=== PATIENT | male | born 1960 | race Caucasian/White ===

== ENCOUNTER 2017-03-22 07:02 | Inpatient (IN) | payer BC ==
--- NOTE | 2017-03-09 21:39 | HP ---
HISTORY AND PHYSICAL: DATE OF OFFICE VISIT: 03/09/17 DATE OF SURGERY: 03/22/17 SURGEON: Cheyanne Mg MD * (DICTATED BY CLEOPATRA DOE) PROCEDURE: Right total knee arthroplasty. CHIEF COMPLAINT: Right knee pain. HISTORY OF PRESENT ILLNESS: Mr. Leblanc is a 56-year-old gentleman with complaints of right knee pain secondary to osteoarthritis. He has failed conservative management, has elected to proceed with a right total knee arthroplasty, which is scheduled for 03/22/[address] Mg. PAST MEDICAL HISTORY: Denies. PAST SURGICAL HISTORY: Right ankle surgery, bilateral knee arthroscopies, appendectomy, tonsillectomy, and right small finger amputation. CURRENT MEDICATIONS: 1. [place]. 2. . ALLERGIES: None. FAMILY HISTORY: Cancer. SOCIAL HISTORY: He is a 56-year-old gentleman, lives with his . He does not smoke, use drugs. Uses occasional alcohol. REVIEW OF SYSTEMS: A complete 14-point review of systems was reviewed with the patient. It was all negative or noncontributory. PHYSICAL EXAMINATION GENERAL: He is well developed, well nourished, in no acute distress. VITAL SIGNS: He stands 5 feet 7 inches tall, weighs 190 pounds. His blood pressure is 122/84, his heart rate is 98. HEENT: Normocephalic, atraumatic. NECK: Supple. No palpable lymph nodes. PULMONARY: Lungs are clear to auscultation bilaterally. CARDIO: Regular rate and rhythm. ABDOMEN: Soft, nontender, and nondistended. MUSCULOSKELETAL: Right lower extremity - the skin is intact. There are no open wounds or abrasions. He has tenderness over the medial and lateral joint line. Right knee, 5 to 125 degrees range of motion. 2+ dorsalis pedis pulses and intact sensation. His lower extremity muscle group strengths are intact at 5/5. NEUROLOGIC: He is alert and oriented x3. Cranial nerves II through XII are intact. ASSESSMENT AND PLAN: Mr. Leblanc is a 56-year-old gentleman with complaints of right knee pain secondary to advanced osteoarthritis. He has failed conservative management and has elected to proceed with a right total knee arthroplasty, which is scheduled for 03/22/[address] Mg discussed the risks and benefits of the surgery at today's visit and all of his questions were answered. Coumadin, Percocet, and Colace were sent to his pharmacy for postoperative pain control and DVT prophylaxis. He will see Dr. Mg back 2 weeks after the surgery. CLEOPATRA DOE [id number]/[facility] #: [id number] MTDCharley
[~2017-03-22 07:02] MED LIST: Buffered Lidocaine 0.9% SYRIN* 5 ML/SYR SYRINGE INTRADERM ONE; Dexamethasone IV* 4 MG/ML 1 ML (4 MG) IV SLOW PU ONE; Famotidine IV* 10 MG/ML 2 ML (20 mg) IV ONE
[2017-03-22] MEDS ORDERED: Famotidine IV* 10 MG/ML 2 ML (20 mg) ONE (07:17)
[2017-03-22] MEDS ORDERED: ceFAZolin 2 GM PREMIX (*) 50 ML IVPB ONE (07:18)
[2017-03-22] MEDS ORDERED: Dexamethasone IV* 4 MG/ML 1 ML (4 MG) ONE (07:18)
[2017-03-22] MEDS ORDERED: Buffered Lidocaine 0.9% SYRIN* 5 ML/SYR SYRINGE ONE (07:18)
[2017-03-22] MEDS ORDERED: Midazolam* 1 MG/ML 10 ML VIAL (10 MG) ONE (08:17)
[2017-03-22] MEDS ORDERED: fentaNYL* 50 MCG/ML 2 ML VIAL (100 MCG VIAL) ONE (08:17)
[2017-03-22] MEDS ORDERED: Morphine PF AMP (0.5MG/ML)* 5 MG/10 ML AMP ONE (08:18)
[2017-03-22] MEDS ORDERED: KETAMINE HCL* 50 MG/ML 10 ML VIAL ONE (08:18)
[2017-03-22] MEDS ORDERED: Ketorolac INJ* 30 MG/ML 1 ML VIAL ONE (08:18)
[2017-03-22] MEDS ORDERED: Propofol* 10 MG/ML 20 ML BTL IV PUSH ONE ×3 (08:19→11:42)
[2017-03-22] MEDS ORDERED: Bupivacaine 0.5% SDV PF* 30 ML VIAL ONE (08:19)
[2017-03-22] MEDS ORDERED: Phenylephrine INJ* 10 MG/ML 1 ML VIAL (10 MG) ONE (08:19)
[2017-03-22] MEDS ORDERED: Ondansetron INJ* 2 MG/ML VIAL ONE (08:19)
[2017-03-22] MEDS ORDERED: fentaNYL* 50 MCG/ML 2 ML VIAL (100 MCG VIAL) IV PRN (10:32)
[2017-03-22] MEDS ORDERED: Ondansetron INJ* 2 MG/ML VIAL IV PRN (10:32)
[2017-03-22] MEDS ORDERED: Naloxone* 0.4 MG/ML 1 ML VIAL IV PRN (10:32)
[2017-03-22] MEDS ORDERED: Nalbuphine* 20 MG/ML 1 ML VIAL IV PRN ×2 (10:32)
[2017-03-22] MEDS ORDERED: oxyCODONE/Acetamin 5/325 MG* TAB PO PRN ×2 (10:32)
[2017-03-22] MEDS ORDERED: DiMENhydriNATE IV* 50 MG/ML VIAL IV PUSH PRN (10:32)
[2017-03-22] MEDS ORDERED: Lidocaine 2% PF * 5 ML VIAL ONE (10:43)
[2017-03-22] MEDS ORDERED: Scopolamine 1.5 mg* PATCH TRANSDERM SCH (11:00)
[2017-03-22] MEDS ORDERED: Ropivacaine* 300 MG in NS 0.9% 250 ML* 240 ML EPIDURAL SCH (11:00)
[2017-03-22] MEDS ORDERED: Polyethylene Glycol 3350* 17 GM PACKET PO PRN (12:46)
[2017-03-22] MEDS ORDERED: Acetaminophen TAB* 325 MG PO PRN (12:46)
[2017-03-22] MEDS ORDERED: Bisacodyl SUPP* 10 MG SUPP PR PRN (12:46)
[2017-03-22] MEDS ORDERED: Magnesium Hydroxide LIQ* 30 ML UDC PO PRN (12:46)
--- NOTE | 2017-03-22 14:09 | RAD ---
INDICATION: Status post total right knee replacement surgery. TECHNIQUE: 2 views of the right knee were obtained. FINDINGS: The patient is status post total right knee replacement surgery. The bones and prostheses are in normal alignment. There is a surgical drain which is located anterior. IMPRESSION: STATUS POST TOTAL RIGHT KNEE REPLACEMENT SURGERY.
[2017-03-22] MEDS ORDERED: Warfarin TAB(*) 6 MG PO ONE (17:00)
[2017-03-22] MEDS: BIOFLAVONOID PRODUCTS PO SCH ×2 (18:04→22:07)
[2017-03-22] MEDS: ceFAZolin 1 GM VIAL(*) 1 GM in NS 0.9% 50 ML* 50 ML IVPB SCH (18:32)
[2017-03-22] MEDS: Docusate CAP* 100 MG PO SCH (21:53)
[2017-03-23] MEDS: ceFAZolin 1 GM VIAL(*) 1 GM in NS 0.9% 50 ML* 50 ML IVPB SCH ×2 (02:13→09:56)
[2017-03-23] MEDS ORDERED: diPHENhydraMINE IV* 50 MG/ML 1 ml VIAL (BENADRYL) IV PRN (06:00)
[2017-03-23] MEDS ORDERED: Morphine INJ* 2 MG/ML 1 ML SYRINGE (TWO MG - NEW SYRINGE VERSION) IV PRN (06:00)
[2017-03-23] MEDS ORDERED: oxyCODONE/Acetamin 5/325 MG* TAB PO PRN (06:00)
[2017-03-23] MEDS ORDERED: oxyCODONE TAB* 5 MG TAB PO PRN (06:00)
[2017-03-23] MEDS ORDERED: Ondansetron TAB* 4 MG PO PRN (06:00)
[2017-03-23 06:44] LABS: Hematocrit 29 % (42-52); Hemoglobin 9.6 g/dl (14.0-18.0)
[2017-03-23 06:55] LABS: BUN/Creatinine Ratio 11.3 (8-20); Calcium 8.6 mg/dL (8.6-10.3); EGFR African American 148.1 (>60); EGFR Non-African American 115.2 (>60); Potassium 3.8 mmol/L (3.5-5.0)
[2017-03-23] MEDS: BIOFLAVONOID PRODUCTS PO SCH ×3 (07:17→20:25)
[2017-03-23] MEDS: oxyCODONE/Acetamin 5/325 MG* TAB PO PRN ×5 (08:25→23:43)
[2017-03-23] MEDS: Docusate CAP* 100 MG PO SCH ×2 (08:25→20:12)
--- NOTE | 2017-03-23 11:33 | PN ---
Progress Note - Progress Note Date of Service: 03/23/17 SOAP: Subjective: []Patient seen OOB in chair, doing well, minimal complaints of knee pain. Denies SOB, CP or dizziness. Objective: [] Vital Signs Temp 98.6 F 03/23/17 07:34 Pulse 79 03/23/17 07:34 Resp 18 03/23/17 10:25 BP 119/66 03/23/17 07:34 Pulse Ox 98 03/23/17 11:29 Intake & Output 03/22/17 03/23/17 03/23/17 18:59 06:59 18:59 Intake Total 2630 1800 225 Output Total 1200 3300 300 Balance 1430 -1500 -75 Weight 193 lb Intake: IV Fluids 1950 LR 1900 NS 50ML, Cefazolin 2G 50 Oral 680 1800 225 Output: Urine 300 Zambrano 1200 3300 Other: # Bowel Movements 0 Laboratory Results - last 24 hr 03/23/17 03/23/17 03/23/17 06:26 06:26 06:26 Hgb 9.6 L Hct 29 L INR (Anticoag Therapy) 1.12 H Sodium 134 Potassium 3.8 Chloride 101 Carbon Dioxide 28 Anion Gap 5 BUN 8 Creatinine 0.71 Est GFR ( Amer) 148.1 Est GFR (Non-Af Amer) 115.2 BUN/Creatinine Ratio 11.3 Glucose 100 Calcium 8.6 Right knee hemovac drain discontinued without complication by Dr. Mg this morning, dressings dry and intact calf NT and soft sensation and circulation intact distally +PF/DF right ankle Assessment: []s/p Right total knee arthroplasty POD #! Plan: []PT/OT WBAT RLE Coumadin with Lovenox bridge- 8 mg today Home 1-2 days
[2017-03-23] MEDS ORDERED: Enoxaparin(*) 30 MG/0.3 ML SYR SUBCUT SCH (12:00)
--- NOTE | 2017-03-23 12:25 | OP ---
OPERATIVE REPORT: DATE OF OPERATION: 03/22/17 - Inpatient, [facility] room 350-02 DATE OF : 62 SURGEON: Cheyanne Mg MD MEMORY CARE DIRECTOR: CLEOPATRA Schaffer Ms. did help throughout the procedure with preparation of the leg, wound retraction, manipulation of the hip, and wound closure. ANESTHESIOLOGIST: Dr. Swan. ANESTHESIA: Spinal. PRE-OP DIAGNOSIS: Severe end-stage degenerative osteoarthritis of the right knee joint with severe varus deformity. POST-OP DIAGNOSIS: Severe end-stage degenerative osteoarthritis of the right knee joint with severe varus deformity. OPERATIVE PROCEDURE: Right total knee arthroplasty. TOURNIQUET TIME: 57 minutes. ESTIMATED BLOOD LOSS: 400 cc. COMPLICATIONS: None. SPECIMEN: Bone and cartilage from the right knee joint sent to pathology. BRIEF HISTORY/INDICATIONS: Mr. Leblanc is a 56-year-old gentleman with years of severe right knee pain. Radiographs confirmed toqa-oo-lyow arthritis. He failed conservative treatment with anti-inflammatories, pain medication, intra- articular injections, and physical therapy. Radiographs confirmed [id number] arthritis and he elected to proceed with right right total knee arthroplasty due to continued pain and decreased quality of life. Informed consent was obtained from the patient. He understood the risks of procedure included, but were not limited to bleeding, infection, damage to nearby structures, continued pain, need for further surgery, intraoperative fracture, nerve palsy, hardware failure or loosening, knee stiffness, loss of motion, stroke, heart attack, blood clot, and . He wished to proceed. HARDWARE USED: This is [employer]hew cemented total knee arthroplasty hardware. Two packages of Simplex bone cement. For the femur, a right size 7 posterior stabilized Legion Oxinium femoral component. For the tibia, a size 6 right tibial baseplate. For the insert, an 11 mm posterior stabilized articular insert size 5/6, and for the patella, a 35 mm 3-peg all poly patella. INTRAOPERATIVE FINDINGS: Intraoperatively, the patient was noted to have severe end-stage arthritis of the knee in a tricompartmental fashion. Medial tibial plateau had a significant bone loss due to chronic wear. The patient had 15 degrees varus deformity with 10 degrees flexion contracture. DESCRIPTION OF PROCEDURE: Mr. Leblanc was identified in the preanesthesia unit. His right lower extremity was marked as the correct operative side. Informed consent was signed and placed in the chart. The patient was taken to the operating room and placed under spinal anesthesia. A Zambrano catheter was placed. Tourniquet was placed on the right knee. Right lower extremity was prepped and draped in the usual sterile fashion. Preop time-out was made to correctly identify the patient's side and site. Appropriate perioperative antibiotics were given within 1 hour of incision. Tourniquet was inflated and total tourniquet time for this procedure was 57 minutes. A 14 cm midline incision was made with a 10 blade and carried down to the extensor mechanism. A new 10 blade was used to make a standard medial parapatellar arthrotomy. The patella was subluxed laterally. Electrocautery was used to subperiosteally elevate soft tissue off the superomedial tibia to the mid sagittal plane. Any osteophytes were carefully removed from along the medial tibial plateau. The knee was flexed up. The anterior horn of the lateral meniscus and ACL were sharply released. A drill was used to enter the distal femur. Intramedullary distal femoral cutting guide was pinned on the distal femur. Oscillating saw was used to make the appropriate distal femoral cut. External rotation guide was pinned on the distal femur. Distal femur was sized to a size 7. Size 7 multi-cutting jig was pinned on the distal femur. Oscillating saw was used to make the appropriate 4 chamfer cuts. Next, the PCL was completely released. Tibia was subluxed anteriorly. Extramedullary tibial cutting guide was pinned on the proximal tibia. Oscillating saw was used to make a proximal tibial cut perpendicular to the mechanical axis of the tibia. The proximal tibial bone fragment was carefully removed. Tibia was brought out into full extension. There was good medial and lateral ligamentous balancing. Spacer block had good fit with full extension. Flexion and extension gaps were well balanced. Lamina pipeline construction inspector was placed both medially and laterally. Any remaining meniscus was carefully removed from the medial and lateral compartments. Posterior osteophytes were removed using a curved osteotome. Tibial tray and drop brittney were placed on the proximal tibia and once again confirmed a satisfactory proximal tibial cut. A size 7 right femoral trial was impacted on to the distal femur. This had excellent fit. The box for the posterior stabilized implant was prepared using a reamer and box cut osteotome. A size 6 trial tibia and an 11-mm insert trial were placed. The knee was taken through range of motion. The knee had full extension and 130 degrees of flexion. Patella was everted. 9 mm of patellar bone and cartilage was carefully removed from the patella using oscillating saw. The patella was sized to a size 35. Three peg holes were drilled through the size 35 guide. The 35 trial patella was placed. The knee was taken through range of motion. There was satisfactory patellofemoral tracking. All trials were carefully removed at this point. The tibia was subluxed anteriorly and sized to a size 6. Proximal tibia was prepared using a size 6 keel punch. All bony cut surfaces were copiously irrigated with sterile saline and dried. Final implants were cemented into place starting with the tibia followed by the femur and last the patella. An 11-mm insert trial was placed while the knee was brought out into full extension. Tourniquet was turned down. Electrocautery was used to obtain meticulous hemostasis. Once the cement had fully cured, the knee was copiously irrigated with sterile saline. The insert trial was removed. Any excess cement from around the hardware and capsule was carefully removed. Final insert chosen was an 11-mm posterior stabilized articular insert, size 5/6. This was locked into position on the tibial tray without difficulty. Stability of the insert was checked and rechecked and noted to be stable. The knee was once again copiously irrigated with sterile saline. The extensor mechanism was closed over a medium Hemovac drain using interrupted #1 Vicryl. The rest of the incision was closed in a layered fashion using 0 and 2-0 Vicryl. Skin was closed using running 3-0 nylon suture. Sterile Xeroform, 4x4' s, and Webril were used to cover the incision. Wilfred wrap and cold pack were placed over this. The patient's anesthesia was reversed without difficulty. He was taken to the PACU in stable condition. Intended weightbearing will be weightbearing as tolerated. Intended DVT prophylaxis will be Coumadin with a Lovenox bridge. [id number]/[facility] #: [id number] KEVAN
[2017-03-23] MEDS ORDERED: Warfarin TAB(*) 4 MG PO ONE (17:00)
[2017-03-24] MEDS: oxyCODONE/Acetamin 5/325 MG* TAB PO PRN ×3 (03:40→11:52)
[2017-03-24 08:42] LABS: Hematocrit 30 % (42-52); Hemoglobin 9.9 g/dl (14.0-18.0)
[2017-03-24] MEDS: BIOFLAVONOID PRODUCTS PO SCH (09:00)
[2017-03-24] MEDS: Docusate CAP* 100 MG PO SCH (09:02)
--- NOTE | 2017-03-24 09:16 | PN ---
Progress Note - Progress Note Date of Service: 03/24/17 SOAP: Subjective: Pt. is alert, nad, pain controlled. Objective: RLE : dressing changed, inc c/d/i. distally nvi. Vital Signs: Temp Pulse Resp BP Pulse Ox 98.1 F 79 18 115/66 98 03/24/17 07:24 03/24/17 07:24 03/24/17 08:59 03/24/17 07:24 03/24/17 08:30 Laboratory Results - last 24 hr 03/24/17 03/24/17 08:21 08:21 Hgb 9.9 L Hct 30 L INR (Anticoag Therapy) 3.30 H Assessment: 56yo M pod 2 s/p RTKA Plan: wbat rle pt/ot d/c lovenox hold coumadin d/c to home today
[2017-03-24 12:03] VITALS: BP 121/70
--- NOTE | 2017-03-24 13:08 | DS ---
AMENDED REPORT NOW INCLUDES COSIGNER DESIGNATION - ESIGNED BEFORE ADJUSTMENT DISCHARGE SUMMARY: DATE OF ADMISSION: 03/22/17 DATE OF DISCHARGE: 03/24/17 PROVIDER: Cheyanne Mg MD * (DICTATED BY CLEOPATRA ARIZA) ADMITTING DIAGNOSIS: Severe end-stage osteoarthritis of the right knee. DISCHARGE DIAGNOSIS: Severe end-stage osteoarthritis of the right knee status post right total knee arthroplasty. HISTORY OF PRESENT ILLNESS: Mr. Leblanc is a 56-year-old gentleman who has had ongoing complaints of right knee pain secondary to osteoarthritis. He failed conservative management and elected to proceed with a right total knee arthroplasty. HOSPITAL COURSE: On 03/22/17, the patient was admitted to [facility] and underwent a successful right total knee arthroplasty by Dr. Mg. He recovered briefly in the postanesthesia care unit and was transferred to the short stay surgical unit in stable condition. On postop day 0, his pain was controlled with IV and oral pain medication. He was given 6 mg of Coumadin. On postop day 1, the patient was able to participate in physical therapy and ambulate a short distance with the use of a rolling walker. His pain was controlled with oral pain medication only. His INR was 1.12. He had acute blood loss anemia with an H and H of 9.6 and 29. On postop day 2, the patient' s INR was 3.30 with 8 mg of Coumadin previously. H and H remained stable at 9.9 and 30. He again had good pain control with oral pain medication only. He was able to participate with physical therapy and ambulate unassisted with the use of a rolling walker. He was found stable for discharge at this time. Throughout the hospital course, his vital signs remained stable and he was afebrile. DISCHARGE INSTRUCTIONS: The patient will keep his dressing clean, dry, and intact until postop day 4. At that time, he may remove the dressing and shower normally with soap and water. He is understanding not to submerge the wound in a bath tub, hot tub or swimming pool. He will have home visiting nurse service for wound care and physical therapy. He will follow up in the office 10 to [address] Mg. He is understanding to call the office with any questions or concerns. He will go directly to the emergency room without any chest pain, shortness of breath, fever greater than 101.5, calf pain , or swelling. DISCHARGE MEDICATIONS: The patient will have: 1. Percocet 5/325 one to two tabs q.4 to 6 hours p.r.n. pain. 2. Aspirin 325 mg p.o. b.i.d. to start on 03/26/17. He is to hold any anticoagulation until that time. 3. Colace 100 mg p.o. b.i.d. 4. MiraLAX 17 g p.o. daily as needed. He will resume his home medications of bioflavonoid products and low testosterone supplement. The patient's discharge condition is stable. All of his questions were answered to his full satisfaction. He is understanding to call with any problems or concerns. CLEOPATRA ARIZA [id number]/[facility] #: [id number] KEVAN
[2017-03-25] MEDS ORDERED: Scopolomine PATCH Remove* 1 NOTE MISC PATCH OFF ONE (10:35)
== END 2017-03-24 12:10 | disposition home health service (06) | DRG 302 ==
LOC: AA 07:02 → SSU 14:11
PROVIDERS: ADMIT Orthopaedic Surgery Adult Reconstructive Orthopaedic Surgery; ATTEND Orthopaedic Surgery Adult Reconstructive Orthopaedic Surgery
PROC: 0SRC0J9 Replacement of Right Knee Joint with Synthetic Substitute, Cemented, Open Approach (ICD-10-PCS; principal; 2017-03-22 09:00)
DX: M17.11 Unilateral primary osteoarthritis, right knee (principal); I10 Essential (primary) hypertension; E66.3 Overweight; I49.3 Ventricular premature depolarization; M21.161 Varus deformity, not elsewhere classified, right knee; M25.761 Osteophyte, right knee; Z72.89 Other problems related to lifestyle; Z80.9 Family history of malignant neoplasm, unspecified; Z89.021 Acquired absence of right finger(s); Z68.28 Body mass index [BMI] 28.0-28.9, adult; Z79.82 Long term (current) use of aspirin
CPT/HCPCS: 36415; 80048; 85014; 85018; 85610; 88305; 88311; 94760; A9270-GY; C1776; J0690; J1100; J1650; J1885; J2250; J2270; J2405; J2704; J2795; J3010

== ENCOUNTER 2018-02-05 06:05 | Observation (INO) | payer BC ==
--- NOTE | 2018-01-24 07:45 | HP ---
HISTORY AND PHYSICAL: DATE OF SURGERY: 02/05/18 DATE OF OFFICE VISIT: 01/18/18. SURGEON: Cheyanne Mg MD.* (DICTATED BY CLEOPATRA DOE) PROCEDURE: Left total knee arthroplasty. CHIEF COMPLAINT: Left knee pain. HISTORY OF PRESENT ILLNESS: Mr. Leblanc is a 57-year-old gentleman with continued complaints of left knee pain. He has failed conservative treatment and elected to proceed with a left total knee arthroplasty, which is scheduled for 02/14/18 , with Dr. Mg. PAST MEDICAL HISTORY: Occasional PVCs. PAST SURGICAL HISTORY: 1. Appendectomy. 2. Right total knee arthroplasty. 3. Right heel surgery. 4. Right finger partial amputation. 5. Unknown right foot surgery. 6. Left knee arthroscopy. CURRENT MEDICATIONS: 1. Aleve. 2. Multivitamin. ALLERGIES: No known drug allergies. FAMILY HISTORY: Parkinson's disease and breast cancer. SOCIAL HISTORY: This is a 57-year-old gentleman, lives with his . He does not smoke or uses drugs. Uses occasional alcohol. REVIEW OF SYSTEMS: A complete 14-point review of systems was reviewed with the patient and was all negative and noncontributory. He denies any history of DVT , PE, hepatitis, HIV or anesthesia problems. PHYSICAL EXAMINATION GENERAL: He is well-developed, well-nourished, in no acute distress. VITAL SIGNS: He stands 69 inches tall, weighs 197 pounds. His blood pressure is 112/78, his heart rate is 62. HEENT: Normocephalic, atraumatic. NECK: Supple. No palpable lymph nodes. PULMONARY: The lungs are clear to auscultation bilaterally. CARDIAC: Regular rate and rhythm. Strong S1, S2. ABDOMEN: Soft, nontender, nondistended. MUSCULOSKELETAL: Left lower extremity, the skin is intact. There are no open wounds, or abrasions. He has some tenderness over the medial and lateral joint line. 2+ dorsalis pedis pulses. Intact sensation in his lower extremity. Muscle group strength is intact at 5/5. Range of motion of the left knee is 10 to 120 degrees of flexion with patellofemoral crepitus. NEUROLOGICALLY: He is alert and oriented x3. ASSESSMENT AND PLAN: Mr. Leblanc is a 57-year-old gentleman with end-stage osteoarthritis of the left knee. He has failed conservative treatment and elected to proceed with a left total knee arthroplasty, which is scheduled for 02/05/18, with Dr. Mg. Dr. Mg discussed the risks and benefits of the surgery at today's visit and all of his questions were answered. He will follow up with Dr. Mg in 2 weeks after the surgery. CLEOPATRA DOE [id number]/[facility] #: [id number] E.J. NOBLE HOSPITALCharley
[~2018-02-05 06:05] MED LIST changes: -Dexamethasone IV* 4 MG/ML 1 ML (4 MG) IV SLOW PU ONE; -Famotidine IV* 10 MG/ML 2 ML (20 mg) IV ONE
[2018-02-05] MEDS ORDERED: ceFAZolin 2 GM PREMIX (*) 2 GM/50 ML BAG IVPB ONE (06:48)
[2018-02-05] MEDS ORDERED: Midazolam* 1 MG/ML 2 ML VIAL (2 MG) ONE (06:53)
[2018-02-05] MEDS ORDERED: fentaNYL* 50 MCG/ML 2 ML VIAL (100 MCG VIAL) ONE (06:53)
[2018-02-05] MEDS ORDERED: Ropivacaine (OR use only) 2 MG/ML 10 ML ONE (06:56)
[2018-02-05] MEDS ORDERED: Lidocaine 1%* 5 ML VIAL ONE (07:18)
[2018-02-05] MEDS ORDERED: ROPIVACAINE 5 MG/ML 30 ML BTL (0.5%) ONE (07:18)
[2018-02-05] MEDS ORDERED: Bupivacaine-MPF SPINAL* 7.5 MG/ML - 2ML AMP ONE (07:38)
[2018-02-05] MEDS ORDERED: Tranexamic Acid 1,000 MG/10 ML 1,000 MG in NS 0.9% 100 ML* 100 ML IV ONE (08:00)
[2018-02-05] MEDS ORDERED: Acetaminophen TAB* 325 MG PO PRN (08:32)
[2018-02-05] MEDS ORDERED: oxyCODONE/Acetamin 5/325 MG* TAB PO PRN ×2 (08:32→10:21)
[2018-02-05] MEDS ORDERED: Naloxone* 0.4 MG/ML 1 ML VIAL IV PRN (08:32)
[2018-02-05] MEDS ORDERED: DiMENhydriNATE IV* 50 MG/ML VIAL IV PUSH PRN (08:32)
[2018-02-05] MEDS ORDERED: fentaNYL* 50 MCG/ML 2 ML VIAL (100 MCG VIAL) IV PRN (08:32)
[2018-02-05] MEDS ORDERED: Morphine INJ* 2 MG/ML 1 ML SYRINGE (TWO MG - NEW SYRINGE VERSION) IV PRN ×2 (08:32→10:21)
[2018-02-05] MEDS ORDERED: Ondansetron INJ* 2 MG/ML VIAL IV PRN (08:32)
[2018-02-05] MEDS ORDERED: Propofol* 10 MG/ML 20 ML BTL IV PUSH ONE ×2 (08:38→09:10)
[2018-02-05] MEDS ORDERED: Lidocaine 2% PF * 5 ML VIAL ONE (08:38)
[2018-02-05] MEDS ORDERED: Magnesium Hydroxide LIQ* 30 ML UDC PO PRN (10:21)
[2018-02-05] MEDS ORDERED: Cyclobenzaprine TAB* 10 MG PO PRN (10:21)
[2018-02-05] MEDS ORDERED: Ondansetron TAB* 4 MG PO PRN (10:21)
[2018-02-05] MEDS ORDERED: Polyethylene Glycol 3350* 17 GM PACKET PO PRN (10:21)
[2018-02-05] MEDS ORDERED: diPHENhydraMINE IV* 50 MG/ML 1 ml VIAL (BENADRYL) IV PRN (10:21)
[2018-02-05] MEDS ORDERED: Bisacodyl SUPP* 10 MG SUPP PR PRN (10:21)
--- NOTE | 2018-02-05 10:57 | RAD ---
HISTORY: s/p left TKA COMPARISONS: February 07, 2017 VIEWS: 2, Frontal and lateral views of the left knee FINDINGS: BONE DENSITY: Normal. BONES: The patient is status post left knee arthroplasty. There is no hardware failure or osteolysis. JOINTS: The patient is status post left knee arthroplasty. ALIGNMENT: There is no dislocation. SOFT TISSUES: Unremarkable. OTHER FINDINGS: None. IMPRESSION: STATUS POST LEFT KNEE ARTHROPLASTY
[2018-02-05] MEDS ORDERED: Acetaminophen TAB* 325 MG PO SCH (11:00)
[2018-02-05] MEDS: Acetaminophen TAB* 325 MG PO SCH ×2 (14:18→19:50)
[2018-02-05] MEDS: oxyCODONE/Acetamin 5/325 MG* TAB PO PRN ×2 (14:18→18:11)
[2018-02-05] MEDS: ceFAZolin 1 GM VIAL(*) 1 GM in NS 0.9% 50 ML* 50 ML IVPB SCH (16:00)
[2018-02-05] MEDS ORDERED: HYDROmorphone INJ* 0.5 MG/0.5 ML SYRINGE IV SLOW PU PRN ×2 (16:18)
[2018-02-05] MEDS ORDERED: HYDROmorphone INJ* 0.5 MG/0.5 ML SYRINGE ONE (16:24)
--- NOTE | 2018-02-05 16:27 | PN ---
Progress Note - Progress Note Date of Service: 02/05/18 SOAP: Subjective: [Pt is a 57 y/o male who underwent a LTKA today. He is seen on the SSU laying in bed. The pt states that he is in some pain right now. Denies any SOB, CHest pain, numbness or tingling. ] Objective: [Gen: A&Ox3. NAD MSK, LLE: Dressing is c/d/i. NVI to light touch. +df/pf. ] Assessment: [POD 0 LTKA] Plan: [1. Switch from morphine to 0.5 Dilaudid and 1mg of Dilaudid 2. PT/OT tomrrow 3. 6mg of coumadin tonight ]
[2018-02-05] MEDS ORDERED: Warfarin TAB(*) 6 MG PO ONE (17:00)
[2018-02-05] MEDS: Magnesium Hydroxide LIQ* 30 ML UDC PO SCH (21:57)
[2018-02-05] MEDS: Ondansetron INJ* 2 MG/ML VIAL IV PRN (21:57)
[2018-02-05] MEDS: Docusate CAP* 100 MG PO SCH (21:58)
[2018-02-06] MEDS: ceFAZolin 1 GM VIAL(*) 1 GM in NS 0.9% 50 ML* 50 ML IVPB SCH ×2 (00:07→07:53)
[2018-02-06] MEDS: oxyCODONE/Acetamin 5/325 MG* TAB PO PRN ×2 (00:07→12:27)
--- NOTE | 2018-02-06 02:50 | OP ---
OPERATIVE NOTE: DATE OF OPERATION: 02/05/18 - Inpatient, SSU 343-02 DATE OF : 62 ATTENDING SURGEON: Cheyanne Mg MD EARLY LEARNING TEACHER: CLEOPATRA Schaffer Ms. did help throughout the procedure with preparation of the leg, wound retraction, manipulation of the knee, and wound closure. ANESTHESIOLOGIST: Dr. Soto. ANESTHESIA: Spinal with adductor nerve block. PRE-OP DIAGNOSIS: Severe end-stage degenerative osteoarthritis of the left knee joint. POST-OP DIAGNOSIS: Severe end-stage degenerative osteoarthritis of the left knee joint. OPERATIVE PROCEDURE: Left total knee arthroplasty. BRIEF HISTORY/INDICATIONS: Mr. Leblanc is a 57-year-old gentleman with chronic left knee pain due to severe end-stage arthritis. He failed conservative treatment with anti-inflammatories, pain medication, physical therapy, brace wear, and intra- articular injections. Radiograph showed [id number] arthritis. He elected to undergo left total knee arthroplasty due to continued pain and decreased quality of life. Informed consent was obtained from the patient. He understood the risks of surgery included, but were not limited to, bleeding, infection, damage to nearby structures, continued pain, need for further surgery, intraoperative fracture, nerve palsy, hardware failure or loosening, knee stiffness, loss of motion, stroke, heart attack, blood clot, and . He wished to proceed. INTRAOPERATIVE FINDINGS: Intraoperatively, the patient was noted to have full- thickness loss of cartilage along the medial and patellofemoral compartments. This was advanced disease with extensive osteophyte formation. The patient was noted to have preop limited range of motion. He had 5 to 95 degrees of flexion preoperatively. At the end of the case, he had full extension to 130 degrees of flexion. TOURNIQUET TIME: 54 minutes. COMPLICATIONS: None. ESTIMATED BLOOD LOSS: 200 cc. HARDWARE USED: This is cemented [employer] total knee arthroplasty hardware. For the cement, 2 packages of Simplex bone cement. For the femur, a left size 7 posterior stabilized Legion Oxinium femoral component. For the tibia, size 7 left Shayna II tibial base plate. For the insert, a 9 mm size 7/ 8 Shayna II posterior stabilized articular insert. For the patella, 35 mm 3- peg all poly patella. DESCRIPTION OF PROCEDURE: Mr. Leblanc was identified in the preanesthesia unit. His left lower extremity was marked as the correct operative side. Informed consent was signed and placed in the chart. The patient was taken to the operating room and placed under spinal anesthesia. An adductor nerve block was placed. A Zambrano catheter was placed. Tourniquet was placed on the left thigh. Left lower extremity was prepped and draped in the usual sterile fashion. Preop time-out was made to correctly identify the patient, side, and site. Appropriate perioperative antibiotics were given within 1 hour of incision. Tourniquet was inflated and total tourniquet time for this procedure was 54 minutes. A midline incision was made with a 10-blade and carried down to the extensor mechanism. A new 10-blade was used to make a standard medial parapatellar arthrotomy. The patella was subluxed laterally. Electrocautery was used to subperiosteally elevate the soft tissue along the superomedial tibia to the mid sagittal plane. The knee was flexed up. The anterior horn of the lateral meniscus and ACL were sharply released. A drill was used to enter the distal femur. Intramedullary distal femoral cutting guide was pinned on the distal femur. Oscillating saw was used to make the distal femoral cut. The external rotation guide was pinned on the distal femur. Distal femur was sized to a size 7. Size 7 multi-cutting jig was pinned on the distal femur. Oscillating saw was used to make the appropriate 4 chamfer cuts. Next, the PCL was completely released and the tibia was subluxed anteriorly. Extramedullary tibial cutting guide was pinned on the proximal tibia. Oscillating saw was used to make proximal tibial cut perpendicular to the mechanical axis of the tibia. The bone was carefully removed. The knee was brought out into full extension. A spacer block had good fit with medial and lateral ligamentous balancing. Flexion and extension gaps were well balanced. The knee was flexed up. Lamina folding rules printing machine operator was placed both medially and laterally. Any remaining meniscus was carefully removed using electrocautery. A curved osteotome was used to remove any posterior osteophytes. Tibial tray and drop brittney were placed and confirmed a satisfactory tibial cut. A left size 7 femoral trial was impacted onto the distal femur and had excellent fit. The box for the posterior stabilized implant was prepared using a reamer and box cut osteotome. The size 7 tibial tray with a 9 mm insert trial was placed and the knee was taken through range of motion. The knee had full extension to 130 degrees of flexion with satisfactory patellofemoral tracking. The patella was subluxed laterally. Oscillating saw was used to carefully remove 9 mm of patellar bone and cartilage. Patella was sized to a size 35. Three peg holes were drilled through the size 35. A 35 trial patella was placed and the knee was taken through range of motion. There was satisfactory patellofemoral tracking. All trials were removed. The tibia was subluxed anteriorly and sized to a size 7. Proximal tibia was prepared using a size 7 keel punch. All bony cut surfaces were copiously irrigated with sterile saline and dried. Final implants were cemented into place starting with the tibia, followed by the femur, and lastly the patella. A 9 mm insert trial was placed and the knee was brought out into full extension. Tourniquet was turned down at 54 minutes. Electrocautery was used to obtain meticulous hemostasis. The knee was copiously irrigated with sterile saline. Once the cement had fully cured, the insert trial was removed. Any excess cement was removed from around the hardware and capsule. Final insert chosen was a 9 mm posterior stabilized articular insert size 7/8. This was locked into position on the tibial tray without difficulty. Stability of the insert was checked and rechecked and noted to be stable. The extensor mechanism was closed using interrupted #1 Vicryls. The rest of the incision was closed in a layered fashion using 0 and 2-0 Vicryl. Skin was closed using running 3-0 nylon suture. Sterile Xeroform, 4x4s, and Webril were used to cover the incision. Wilfred wrap and cold pack were placed over this. The patient's anesthesia was reversed without difficulty. He was taken to the PACU in stable condition. Intended weightbearing will be weightbearing as tolerated. Intended DVT prophylaxis will be Coumadin with Lovenox bridge. [id number]/[facility] #: [id number] [facility] CENTERCharley
[2018-02-06] MEDS: Acetaminophen TAB* 325 MG PO SCH ×2 (04:28→11:47)
[2018-02-06] MEDS: Ondansetron INJ* 2 MG/ML VIAL IV PRN (04:28)
[2018-02-06] MEDS: oxyCODONE TAB* 5 MG TAB PO PRN ×3 (06:24→16:39)
[2018-02-06 07:16] LABS: Hematocrit 39 % (42-52); Hemoglobin 12.9 g/dl (14.0-18.0); Mean Platelet Volume 8.4 um3 (7.4-10.4); Platelet Count 252 10^3/ul (150-450)
[2018-02-06 07:28] LABS: EGFR Non-African American 93.2 (>60)
[2018-02-06 07:50] LABS: INR 1.09 (0.77-1.02)
[2018-02-06] MEDS: Magnesium Hydroxide LIQ* 30 ML UDC PO SCH (07:54)
[2018-02-06] MEDS: Docusate CAP* 100 MG PO SCH (07:54)
[2018-02-06] MEDS ORDERED: Scopolamine 1.5 mg* PATCH TRANSDERM ONE (09:00)
--- NOTE | 2018-02-06 10:24 | PN ---
Progress Note - Progress Note Date of Service: 02/06/18 SOAP: Subjective: []Patient seen at bedside. Left knee pain is well controlled. He denies chest pain, shortness of breath, dizziness, no current nausea. He has been vomiting and has needed IV dilaudid for pain control as recently as this morning. Objective: []General: Well appearing, NAD LLE: Left knee dressing CDI. Thigh is soft. DF/PF intact. Sensation intact distally. Dp 2+ BL calves supple and nontender without erythema, edema or palpable cords Assessment: []POD 1 s/p LTK Plan: []WBAT PT/OT lovenox in house. desires ASA 325 mg BID at home so will stop coumadin and transition to ASA at discharge If able to manage pain without IV antibiotics and patient stops vomiting, he may be eligible to go home this afternoon. If he requires IV pain medication and continues to vomit he will have to stay overnight Vital Signs Temp 97.8 F 02/06/18 07:32 Pulse 75 02/06/18 07:32 Resp 20 02/06/18 10:08 BP 132/81 02/06/18 07:32 Pulse Ox 98 02/06/18 08:00 Intake & Output 02/05/18 02/06/18 02/06/18 18:59 06:59 18:59 Intake Total 2955 2507 1245 Output Total 1725 1300 Balance 1230 1207 1245 Weight 432 lb 1.696 oz Intake: IV Fluids 8882 500 4959 ABX - CEFAZOLIN 55 LR 1700 997 990 NS 50ML, Cefazolin 2G 50 IVPB 110 ABX - CEFAZOLIN 110 Oral 1150 1400 200 Output: Urine 475 400 Zambrano 1100 850 Emesis 50 Estimated Blood Loss 150 Laboratory Last Values Hgb 12.9 g/dl (14.0-18.0) L 02/06/18 06:57 Hct 39 % (42-52) L 02/06/18 06:57 Plt Count 252 10^3/ul (150-450) 02/06/18 06:57 MPV 8.4 um3 (7.4-10.4) 02/06/18 06:57 INR (Anticoag Therapy) 1.09 (0.77-1.02) H 02/06/18 06:57 Sodium 134 mmol/L (135-145) L 02/06/18 06:57 Potassium 3.8 mmol/L (3.5-5.0) 02/06/18 06:57 Chloride 100 mmol/L (101-111) L 02/06/18 06:57 Carbon Dioxide 29 mmol/L (22-32) 02/06/18 06:57 Anion Gap 5 mmol/L (2-11) 02/06/18 06:57 BUN 9 mg/dL (6-24) 02/06/18 06:57 Creatinine 0.85 mg/dL (0.67-1.17) 02/06/18 06:57 Est GFR ( Amer) 112.8 (>60) 02/06/18 06:57 Est GFR (Non-Af Amer) 93.2 (>60) 02/06/18 06:57 BUN/Creatinine Ratio 10.6 (8-20) 02/06/18 06:57 Glucose 131 mg/dL (70-100) H 02/06/18 06:57 Calcium 8.7 mg/dL (8.6-10.3) 02/06/18 06:57 Vital Signs Temp 97.8 F 02/06/18 07:32 Pulse 75 02/06/18 07:32 Resp 20 02/06/18 10:08 BP 132/81 02/06/18 07:32 Pulse Ox 98 02/06/18 08:00 Intake & Output 02/05/18 02/06/18 02/06/18 18:59 06:59 18:59 Intake Total 2955 2507 1245 Output Total 1725 1300 Balance 1230 1207 1245 Weight 432 lb 1.696 oz Intake: IV Fluids 4124 687 4567 ABX - CEFAZOLIN 55 LR 1700 997 990 NS 50ML, Cefazolin 2G 50 IVPB 110 ABX - CEFAZOLIN 110 Oral 1150 1400 200 Output: Urine 475 400 Zambrano 1100 850 Emesis 50 Estimated Blood Loss 150 Laboratory Last Values Hgb 12.9 g/dl (14.0-18.0) L 02/06/18 06:57 Hct 39 % (42-52) L 02/06/18 06:57 Plt Count 252 10^3/ul (150-450) 02/06/18 06:57 MPV 8.4 um3 (7.4-10.4) 02/06/18 06:57 INR (Anticoag Therapy) 1.09 (0.77-1.02) H 02/06/18 06:57 Sodium 134 mmol/L (135-145) L 02/06/18 06:57 Potassium 3.8 mmol/L (3.5-5.0) 02/06/18 06:57 Chloride 100 mmol/L (101-111) L 02/06/18 06:57 Carbon Dioxide 29 mmol/L (22-32) 02/06/18 06:57 Anion Gap 5 mmol/L (2-11) 02/06/18 06:57 BUN 9 mg/dL (6-24) 02/06/18 06:57 Creatinine 0.85 mg/dL (0.67-1.17) 02/06/18 06:57 Est GFR ( Amer) 112.8 (>60) 02/06/18 06:57 Est GFR (Non-Af Amer) 93.2 (>60) 02/06/18 06:57 BUN/Creatinine Ratio 10.6 (8-20) 02/06/18 06:57 Glucose 131 mg/dL (70-100) H 02/06/18 06:57 Calcium 8.7 mg/dL (8.6-10.3) 02/06/18 06:57
[2018-02-06] MEDS ORDERED: Enoxaparin(*) 30 MG/0.3 ML SYR SUBCUT SCH (12:00)
[2018-02-06 15:43] VITALS: BP 123/66
--- NOTE | 2018-02-07 13:11 | DS ---
DISCHARGE SUMMARY: DATE OF ADMISSION: 02/05/18 DATE OF DISCHARGE: 02/06/18 SURGEON: Dr. Cheyanne Mg* (dictated by CLEOPATRA Mcleod). PIANO AND ORGAN REFINISHER: CLEOPATRA Schfafer PREOPERATIVE DIAGNOSIS: Severe end-stage degenerative osteoarthritis of the left knee joint. OPERATIVE PROCEDURE: Left total knee arthroplasty. HISTORY: Mr. Leblanc is a 57-year-old gentleman with chronic left knee pain due to severe end-stage arthritis. He failed conservative treatment and elected to undergo a left total knee arthroplasty. He did have a right total knee arthroplasty done in the past, which he did well with. HOSPITAL COURSE: The patient was admitted to [facility] on . He underwent a left total knee arthroplasty without complication. He recovered briefly in the PACU and then was transferred to the short stay surgical unit in stable condition. He was seen on postop day 1. He did require some IV Dilaudid overnight and into the early hours of the morning. He had some vomiting throughout the day, which resolved with scopolamine patch as well as discontinuation of Dilaudid. His pain remained well controlled and his nausea and vomiting had resolved. Left knee showed dressing was clean, dry, and intact. The dressing was changed. The incision was clean, dry, and intact without any surrounding erythema or discharge. Dorsiflexion and plantar flexion intact. Sensation intact distally. Dorsalis pedis pulse 2+. The patient's vital signs, temperature 97.8, pulse 75, respiratory rate 20, blood pressure 132/81, pulse ox 98. Hemoglobin 12.9, hematocrit 39. INR 1.09. The patient is elected to be discharged on aspirin 325 mg b.i.d. rather than taking Coumadin at home. He did well on aspirin after his left knee replacement. The patient was deemed to be medically and orthopedically stable for discharge home. DISCHARGE MEDICATIONS: 1. Multivitamin. 2. Docusate 100 mg p.o. b.i.d. 3. Oxycodone/acetaminophen 5/325 one to two tabs every 4 to 6 hours p.r.n. 4. Daily dose of acetaminophen 975 mg 3 times a day as needed. 5. Daily dose of acetaminophen 4000 mg daily from all sources. DISCHARGE PLAN: The patient will be weightbearing as tolerated. He will do outpatient physical therapy. DVT prophylaxis is aspirin 325 mg every 12 hours for 30 days. Pain control with Percocet 5/325 mg 1 to 2 tabs by mouth every 4 to 6 hours as needed for pain, max of 10 tablets per day. Follow up with Dr. Mg in 10 to 14 days. CLEOPATRA PHILLIPS [id number]/[facility] #: [id number] KEVAN
[2018-02-09] MEDS ORDERED: Scopolamine PATCH Remove* 1 NOTE MISC PATCH OFF ONE (08:59)
== END 2018-02-06 18:25 | disposition home or self-care (01) ==
LOC: OR 06:05 → SSU 11:45
PROVIDERS: ADMIT Orthopaedic Surgery Adult Reconstructive Orthopaedic Surgery; ATTEND Orthopaedic Surgery Adult Reconstructive Orthopaedic Surgery
DX: M17.12 Unilateral primary osteoarthritis, left knee (principal); M25.562 Pain in left knee
CPT/HCPCS: 36415; 80048; 85014; 85018; 85049; 85610; 88305; 88311; A9270-GY; C1776; G0378; G8987-GO-CJ; G8988-GO-CJ; G8989-GO-CJ; J0690; J1170; J1650; J2250; J2270; J2405; J2704; J2795; J3010

== ENCOUNTER 2023-09-03 08:28 | Inpatient (IN) ==
[2023-09-03 09:35] LABS: ABS Lymphocytes 1.4 10^3/uL (1.0-4.8); ABS Monocytes 0.3 10^3/uL (0.0-1.1); ABS Neutrophils 11.3 10^3/uL (1.5-7.6); ABS Nucleated RBC 0.01 10^3/ul; Eosinophil % 0.2 %; Hematocrit 33.6 % (38-53); Hemoglobin 11.4 g/dL (13.2-16.3); Lymphocyte % 10.8 %; Mean Corpuscular Hemoglobin 28.4 pg (27-33); Mean Corpuscular Hgb Conc 33.9 g/dL (31-36); Mean Corpuscular Volume 83.7 fL (80-97); Platelet Count 441 10^3/uL (150-450); Red Blood Count 4.01 10^6/uL (4.06-5.63); Red Cell Distribution Width 14.8 % (12-17); White Blood Count 13.1 10^3/uL (3.6-10.2)
[2023-09-03] MEDS: Lidocaine 1% MPF 5 ML VIAL INJ ONE (09:38)
[2023-09-03] MEDS: Lactated Ringers 1000 ml BAG 1,000 ML IV ONE ×2 (09:38→12:45)
[2023-09-03 10:00] LABS: ALT 180 U/L (7-52); AST 107 U/L (13-39); Albumin 3.7 g/dL (3.2-5.2); Albumin/Globulin Ratio 1.3 (1-3); Alkaline Phosphatase 692 U/L (35-149); Blood Urea Nitrogen 66 mg/dL (6-24); CO2 Carbon Dioxide > 45 mmol/L (22-32); Calcium 9.8 mg/dL (8.6-10.3); Chloride 63 mmol/L (101-111); Creatinine, Serum 1.38 mg/dL (0.67-1.17); Globulin 2.8 g/dL (2-4); Glucose 125 mg/dL (70-100); Magnesium 2.8 mg/dL (1.9-2.7); Phosphorus 4.1 mg/dL (2.5-5.0); Potassium 2.6 mmol/L (3.5-5.0); Sodium 127 mmol/L (135-145); Total Protein 6.5 g/dL (6.4-8.9); eGFR CKD-EPI 57.8 (>60)
[2023-09-03] MEDS: KCL 10 MEQ/50 ML IVPREMIX 10 MEQ/50 ML BAG IV SCH (10:30)
[2023-09-03] MEDS: Amoxicillin/Clavul ORALSYR 80 MG/ML (400 MG/5 ML) PO ONE (12:42)
[2023-09-03] MEDS: Ondansetron 4 mg VIAL 2 MG/ML 2 ml VIAL IV ONE (13:48)
[2023-09-03] MEDS: Potassium Chloride LIQUID 20 MEQ/15 ML LIQUID PO ONE (17:34)
[2023-09-03] MEDS: NS 0.9% 1000 ml BAG 1,000 ML IV SCH (18:46)
[2023-09-03] MEDS: KCL 20 MEQ/100 ML IVPREMIX 20 MEQ/100 ML BAG IV SCH (18:49)
[2023-09-03 20:04] LABS: Blood Urea Nitrogen 56 mg/dL (6-24); CO2 Carbon Dioxide > 45 mmol/L (22-32); Chloride 66 mmol/L (101-111); Creatinine, Serum 1.08 mg/dL (0.67-1.17); Glucose 109 mg/dL (70-100); Potassium 2.6 mmol/L (3.5-5.0); Sodium 128 mmol/L (135-145); eGFR CKD-EPI 77.6 (>60)
[2023-09-04] MEDS: Dexamethasone Oral Solution 1 MG/ML 10 ML UDC (10 MG) PO SCH (02:00)
[2023-09-04] MEDS: Amoxicillin/Clavul ORALSYR 80 MG/ML (400 MG/5 ML) PO SCH (02:00)
[2023-09-04] MEDS: KCL 20 MEQ/100 ML IVPREMIX 20 MEQ/100 ML BAG IV SCH ×2 (02:18→14:33)
[2023-09-04 07:16] LABS: Potassium 2.6 mmol/L (3.5-5.0); Sodium 130 mmol/L (135-145)
[2023-09-04 07:17] LABS: Blood Urea Nitrogen 53 mg/dL (6-24); CO2 Carbon Dioxide > 45 mmol/L (22-32); Chloride 71 mmol/L (101-111); Creatinine, Serum 1.03 mg/dL (0.67-1.17); Glucose 106 mg/dL (70-100); eGFR CKD-EPI 82.1 (>60)
[2023-09-04 11:04] LABS: Hematocrit 31.4 % (38-53); Hemoglobin 10.6 g/dL (13.2-16.3); Mean Corpuscular Hemoglobin 28.6 pg (27-33); Mean Corpuscular Hgb Conc 33.7 g/dL (31-36); Mean Corpuscular Volume 84.8 fL (80-97); Mean Platelet Volume 7.5 fL (7.5-11.2); Platelet Count 373 10^3/uL (150-450); Red Cell Distribution Width 15.1 % (12-17); White Blood Count 10.1 10^3/uL (3.6-10.2)
[2023-09-04 11:30] LABS: ALT 153 U/L (7-52); AST 93 U/L (13-39); Albumin 3.5 g/dL (3.2-5.2); Albumin/Globulin Ratio 1.5 (1-3); Alkaline Phosphatase 612 U/L (35-149); Blood Urea Nitrogen 48 mg/dL (6-24); CO2 Carbon Dioxide > 45 mmol/L (22-32); Calcium 9.1 mg/dL (8.6-10.3); Chloride 73 mmol/L (101-111); Cholesterol 228 mg/dL; Creatinine, Serum 1.03 mg/dL (0.67-1.17); Globulin 2.4 g/dL (2-4); Glucose 93 mg/dL (70-100); Magnesium 2.4 mg/dL (1.9-2.7); Phosphorus 2.1 mg/dL (2.5-5.0); Potassium 3.1 mmol/L (3.5-5.0); Prealbumin 20 mg/dL (18-38); Sodium 131 mmol/L (135-145); Total Bilirubin 1.6 mg/dL (0.2-1.0); Total Protein 5.9 g/dL (6.4-8.9); Triglycerides 115 mg/dL; eGFR CKD-EPI 82.1 (>60)
[2023-09-04] MEDS: TPN 24 HR with Dextrose 50% Water 500 ML, Amino Acid Infusion 10% 850 ML, Sterile Water... CENT\\PICC SCH (16:42)
[2023-09-04] MEDS ORDERED: TPN 24 HR with Dextrose 50% Water 500 ML, Amino Acid Infusion 10% 850 ML, Sterile Water... CENT\\PICC SCH (17:00)
[2023-09-04] MEDS: Enoxaparin 40 MG/0.4 ML SYR SUBCUT SCH (21:54)
[2023-09-05 06:02] LABS: Urine Appearance No Cx Clear (Clear); Urine Bilirubin No Culture Negative (Negative); Urine Blood No Culture Negative (Negative); Urine Color No Culture Yellow; Urine Glucose No Culture Negative (Negative); Urine Ketones No Culture Negative (Negative); Urine Leukocytes No Culture Negative Leu/uL (Negative); Urine Nitrite No Culture Negative (Negative); Urine Protein No Culture Trace (Negative); Urine Specific Gravity No Cx 1.023 (1.002-1.030); Urine Urobilinogen No Cx 1+ (Negative)
[2023-09-05 06:18] LABS: ALT 139 U/L (7-52); AST 89 U/L (13-39); Albumin 3.2 g/dL (3.2-5.2); Albumin/Globulin Ratio 1.3 (1-3); Alkaline Phosphatase 613 U/L (35-149); Blood Urea Nitrogen 40 mg/dL (6-24); CO2 Carbon Dioxide > 45 mmol/L (22-32); Chloride 76 mmol/L (101-111); Cholesterol 217 mg/dL; Creatinine, Serum 0.75 mg/dL (0.67-1.17); Globulin 2.4 g/dL (2-4); Glucose 123 mg/dL (70-100); Phosphorus 1.8 mg/dL (2.5-5.0); Potassium 2.8 mmol/L (3.5-5.0); Prealbumin 18 mg/dL (18-38); Sodium 130 mmol/L (135-145); Total Bilirubin 1.3 mg/dL (0.2-1.0); Total Protein 5.6 g/dL (6.4-8.9); Triglycerides 105 mg/dL
[2023-09-05 06:21] LABS: TSH Ultra Thyroid Stim Horm 2.19 mcIU/mL (0.34-5.60)
[2023-09-05 06:22] LABS: Free T3 2.75 pg/mL (2.5-3.9)
[2023-09-05 06:27] LABS: Total T3 61 ng/dL (87-178)
[2023-09-05 07:13] LABS: Ur Amorph Crystals No Culture Present /HPF (Absent); Urine Bacteria No Culture Absent /HPF (Absent); Urine Red Blood Cell No Cult Trace(0-2/hpf) /HPF (0-Trace); Urine White Blood Cell No Cult Trace(0-5/hpf) /HPF (0-Trace)
[2023-09-05] MEDS: KCL 20 MEQ/100 ML IVPREMIX 20 MEQ/100 ML BAG IV SCH (10:13)
[2023-09-05] MEDS: Potassium Phosphate IV 15 MMOL in NS 0.9% 250 ml 250 ML IVPB ONE (10:15)
[2023-09-05 14:20] LABS: Venous Bicarbonate HCO3 44.8 mmol/L (24-28)
[2023-09-05 15:52] LABS: Insulin 12.8 mcIU/mL (2.0-16.0)
[2023-09-05] MEDS: TPN 24 HR with Dextrose 40% Water 625 ML, Amino Acid Infusion 10% 850 ML, Sterile Water... CENT\\PICC SCH (17:32)
[2023-09-05 20:18] LABS: Blood Urea Nitrogen 33 mg/dL (6-24); CO2 Carbon Dioxide > 45 mmol/L (22-32); Calcium 8.5 mg/dL (8.6-10.3); Chloride 79 mmol/L (101-111); Creatinine, Serum 0.73 mg/dL (0.67-1.17); Glucose 135 mg/dL (70-100); Potassium 3.4 mmol/L (3.5-5.0); Sodium 129 mmol/L (135-145); eGFR CKD-EPI 102.9 (>60)
[2023-09-06 05:38] LABS: Albumin 2.8 g/dL (3.2-5.2); Albumin/Globulin Ratio 1.4 (1-3); Calcium 8.2 mg/dL (8.6-10.3); Creatinine, Serum 0.57 mg/dL (0.67-1.17); Magnesium 1.6 mg/dL (1.9-2.7); Phosphorus 1.9 mg/dL (2.5-5.0); Potassium 2.9 mmol/L (3.5-5.0); Total Bilirubin 1.5 mg/dL (0.2-1.0); Total Protein 4.8 g/dL (6.4-8.9); eGFR CKD-EPI 110.8 (>60)
[2023-09-06] MEDS ORDERED: Lidocaine PATCH 4% TOPICAL PRN (09:08)
[2023-09-06] MEDS: CALCIUM GLUCONATE 1GM/50ML NS 1 GM/50 ML BAG IV ONE (09:15)
[2023-09-06] MEDS: TPN 24 HR with Dextrose 40% Water 625 ML, Amino Acid Infusion 10% 850 ML, Sterile Water... CENT\\PICC SCH (10:27)
[2023-09-06] MEDS: Potassium Phosphate IV 15 MMOL in NS 0.9% 250 ml 250 ML IVPB ONE (10:49)
[2023-09-06] MEDS: Magnesium Sulfate 2 gm BAG 2 GM/50 ML BAG IVPB ONE (10:56)
[2023-09-06] MEDS: KCL 20 MEQ/100 ML IVPREMIX 20 MEQ/100 ML BAG IV SCH (10:56)
[2023-09-06] MEDS ORDERED: Thiamine 100 MG/ML 2 ml VIAL 250 MG in NS 0.9% 100 ml BAG 100 ML IV SCH (12:00)
[2023-09-06] MEDS: Thiamine 100 MG/ML 2 ml VIAL 250 MG in NS 0.9% 100 ml BAG 100 ML IV SCH (16:59)
[2023-09-06 17:11] LABS: Calcium 8.6 mg/dL (8.6-10.3); Creatinine, Serum 0.59 mg/dL (0.67-1.17); Magnesium 2.1 mg/dL (1.9-2.7); Potassium 3.3 mmol/L (3.5-5.0); eGFR CKD-EPI 109.7 (>60)
[2023-09-06] MEDS: KCL 20 MEQ/100 ML IVPREMIX 20 MEQ/100 ML BAG IV ONE (17:53)
[2023-09-07 06:35] LABS: Albumin 2.8 g/dL (3.2-5.2); Albumin/Globulin Ratio 1.4 (1-3); Calcium 8.1 mg/dL (8.6-10.3); Creatinine, Serum 0.58 mg/dL (0.67-1.17); Magnesium 1.8 mg/dL (1.9-2.7); Phosphorus 2.3 mg/dL (2.5-5.0); Total Bilirubin 1.4 mg/dL (0.2-1.0); Total Protein 4.8 g/dL (6.4-8.9); eGFR CKD-EPI 110.3 (>60)
[2023-09-07] MEDS: KCL 20 MEQ/100 ML IVPREMIX 20 MEQ/100 ML BAG IV SCH (08:14)
[2023-09-07] MEDS: Dexamethasone Oral Solution 1 MG/ML 10 ML UDC (10 MG) PO SCH (09:29)
[2023-09-07] MEDS: Potassium Phosphate IV 15 MMOL in NS 0.9% 250 ml 250 ML IVPB ONE (09:29)
[2023-09-07] MEDS: Magnesium Sulfate 2 gm BAG 2 GM/50 ML BAG IVPB ONE (10:53)
[2023-09-07] MEDS: TPN 24 HR with Dextrose 40% Water 625 ML, Amino Acid Infusion 10% 850 ML, Sterile Water... CENT\\PICC SCH (17:58)
[2023-09-07 19:45] LABS: Calcium 8.2 mg/dL (8.6-10.3); Creatinine, Serum 0.57 mg/dL (0.67-1.17); Potassium 4.2 mmol/L (3.5-5.0); eGFR CKD-EPI 110.8 (>60)
[2023-09-08 06:45] LABS: ABS Eosinophils 0.1 10^3/uL (0.0-0.5); ABS Lymphocytes 1.3 10^3/uL (1.0-4.8); ABS Monocytes 0.3 10^3/uL (0.0-1.1); ABS Neutrophils 5.7 10^3/uL (1.5-7.6); Eosinophil % 1.4 %; Hematocrit 23.9 % (38-53); Lymphocyte % 17.3 %; Mean Corpuscular Hemoglobin 28.8 pg (27-33); Mean Corpuscular Hgb Conc 33.5 g/dL (31-36); Mean Platelet Volume 8.4 fL (7.5-11.2); Platelet Count 201 10^3/uL (150-450); Red Blood Count 2.78 10^6/uL (4.06-5.63); Red Cell Distribution Width 15.9 % (12-17); White Blood Count 7.4 10^3/uL (3.6-10.2)
[2023-09-08 07:04] LABS: Calcium 7.7 mg/dL (8.6-10.3); Creatinine, Serum 0.43 mg/dL (0.67-1.17); Magnesium 1.8 mg/dL (1.9-2.7); Phosphorus 2.7 mg/dL (2.5-5.0); Potassium 3.1 mmol/L (3.5-5.0); eGFR CKD-EPI 120.7 (>60)
[2023-09-08] MEDS: Magnesium Sulfate IV 1GM/100ML 1 GM/100 ML BAG IV ONE (11:31)
[2023-09-08] MEDS: CALCIUM GLUCONATE 1GM/50ML NS 1 GM/50 ML BAG IV ONE (12:05)
[2023-09-08] MEDS: KCL 20 MEQ/100 ML IVPREMIX 20 MEQ/100 ML BAG IV SCH (13:34)
[2023-09-08] MEDS ORDERED: TPN 24 HR with Dextrose 50% Water 500 ML, Amino Acid Infusion 10% 850 ML, Sterile Water... CENT\\PICC SCH (17:00)
[2023-09-08] MEDS: TPN 24 HR with Dextrose 40% Water 625 ML, Amino Acid Infusion 10% 850 ML, Sterile Water... CENT\\PICC SCH (18:14)
[2023-09-08 18:34] LABS: Hematocrit 24.3 % (38-53); Hemoglobin 8.4 g/dL (13.2-16.3); Mean Corpuscular Hemoglobin 29.8 pg (27-33); Mean Corpuscular Hgb Conc 34.6 g/dL (31-36); Mean Corpuscular Volume 86.1 fL (80-97); Mean Platelet Volume 8.5 fL (7.5-11.2); Platelet Count 209 10^3/uL (150-450); Red Blood Count 2.82 10^6/uL (4.06-5.63); Red Cell Distribution Width 15.9 % (12-17); White Blood Count 5.8 10^3/uL (3.6-10.2)
[2023-09-09 00:16] LABS: Potassium 3.2 mmol/L (3.5-5.0)
[2023-09-09 00:17] LABS: Albumin 2.7 g/dL (3.2-5.2); Albumin/Globulin Ratio 1.2 (1-3); Creatinine, Serum 0.48 mg/dL (0.67-1.17); Globulin 2.2 g/dL (2-4); Phosphorus 2.7 mg/dL (2.5-5.0); Total Bilirubin 2.3 mg/dL (0.2-1.0); Total Protein 4.9 g/dL (6.4-8.9); eGFR CKD-EPI 116.8 (>60)
[2023-09-09 00:30] LABS: Magnesium 1.8 mg/dL (1.9-2.7)
[2023-09-09] MEDS: Magnesium Sulfate 2 gm BAG 2 GM/50 ML BAG IVPB ONE (01:03)
[2023-09-09 01:24] LABS: Folate 4.18 ng/mL (5.90-24.80)
[2023-09-09] MEDS: KCL 20 MEQ/100 ML IVPREMIX 20 MEQ/100 ML BAG IV SCH (02:04)
[2023-09-09 07:02] LABS: ABS Eosinophils 0.1 10^3/uL (0.0-0.5); ABS Monocytes 0.3 10^3/uL (0.0-1.1); ABS Neutrophils 4.1 10^3/uL (1.5-7.6); ABS Nucleated RBC 0.01 10^3/ul; Eosinophil % 1.3 %; Hematocrit 23.5 % (38-53); Hemoglobin 7.8 g/dL (13.2-16.3); Lymphocyte % 17.7 %; Mean Corpuscular Hemoglobin 28.7 pg (27-33); Mean Corpuscular Hgb Conc 33.4 g/dL (31-36); Mean Platelet Volume 8.4 fL (7.5-11.2); Nucleated Red Blood Cells % 0.2 %/100WBC (0.0-0.8); Platelet Count 204 10^3/uL (150-450); Red Blood Count 2.73 10^6/uL (4.06-5.63); Red Cell Distribution Width 16.2 % (12-17); White Blood Count 5.5 10^3/uL (3.6-10.2)
[2023-09-09 08:07] LABS: Creatinine, Serum 0.51 mg/dL (0.67-1.17); Magnesium 2.1 mg/dL (1.9-2.7); Phosphorus 2.9 mg/dL (2.5-5.0); Potassium 3.9 mmol/L (3.5-5.0); eGFR CKD-EPI 114.6 (>60)
[2023-09-09] MEDS: Dexamethasone Oral Solution 1 MG/ML 10 ML UDC (10 MG) PO SCH (09:12)
[2023-09-09] MEDS: Iron Sucrose 200 MG in NS 0.9% 100 ml BAG 100 ML IVPB SCH (09:13)
[2023-09-09] MEDS: Phenol 1.4% Throat Spray BTL MT PRN (13:00)
[2023-09-09] MEDS: KCL 20 MEQ/100 ML IVPREMIX 20 MEQ/100 ML BAG IV ONE ×2 (13:32→18:20)
[2023-09-09] MEDS: Iodixanol (CONTRAST) 320 MG/ML 100 ML SDV IV ONE (15:34)
[2023-09-09] MEDS: Folic Acid IV 1 MG in NS 0.9% 50 ML 50 ML IV ONE (15:50)
[2023-09-09 16:40] LABS: ABS Eosinophils 0.1 10^3/uL (0.0-0.5); ABS Monocytes 0.4 10^3/uL (0.0-1.1); ABS Neutrophils 4.4 10^3/uL (1.5-7.6); Eosinophil % 1.3 %; Hematocrit 24.3 % (38-53); Hemoglobin 8.3 g/dL (13.2-16.3); Lymphocyte % 16.8 %; Mean Corpuscular Hemoglobin 29.4 pg (27-33); Mean Corpuscular Hgb Conc 34.1 g/dL (31-36); Mean Corpuscular Volume 86.4 fL (80-97); Mean Platelet Volume 8.4 fL (7.5-11.2); Platelet Count 242 10^3/uL (150-450); Red Blood Count 2.81 10^6/uL (4.06-5.63); Red Cell Distribution Width 16.4 % (12-17); White Blood Count 5.9 10^3/uL (3.6-10.2)
[2023-09-09 17:00] LABS: Calcium 7.8 mg/dL (8.6-10.3); Creatinine, Serum 0.43 mg/dL (0.67-1.17); Potassium 3.6 mmol/L (3.5-5.0); eGFR CKD-EPI 120.7 (>60)
[2023-09-09] MEDS ORDERED: TPN 24 HR with Dextrose 50% Water 500 ML, Amino Acid Infusion 10% 850 ML, Sterile Water... CENT\\PICC SCH (17:00)
[2023-09-09 17:01] LABS: Albumin 2.6 g/dL (3.2-5.2); Albumin/Globulin Ratio 1.3 (1-3); Direct Bilirubin 1.9 mg/dL (0.03-0.18); Indirect Bilirubin 1.2 mg/dL (0.3-1.0); Magnesium 1.9 mg/dL (1.9-2.7); Phosphorus 2.6 mg/dL (2.5-5.0); Total Bilirubin 3.1 mg/dL (0.2-1.0); Total Protein 4.6 g/dL (6.4-8.9)
[2023-09-09] MEDS ORDERED: Zosyn per Pharmacy NOTE FOLLOW UP SCH (18:00)
[2023-09-09] MEDS: TPN 24 HR with Dextrose 40% Water 625 ML, Amino Acid Infusion 10% 850 ML, Sterile Water... CENT\\PICC SCH (18:19)
[2023-09-09] MEDS: Magnesium Sulfate IV 1GM/100ML 1 GM/100 ML BAG IV ONE (18:21)
[2023-09-09] MEDS: Dexamethasone Oral Solution 1 MG/ML 10 ML UDC (10 MG) PO ONE (18:35)
[2023-09-09] MEDS: Piperacillin/Tazobac 3.375 BAG 3.375 GM/100 ML BAG IV ONE (19:35)
[2023-09-09 20:07] LABS: Urine Bacteria No Culture Absent /HPF (Absent); Urine Bilirubin No Culture 1+ (Negative); Urine Blood No Culture Negative (Negative); Urine Color No Culture Dark-Yellow; Urine Glucose No Culture Negative (Negative); Urine Ketones No Culture Negative (Negative); Urine Leukocytes No Culture Negative Leu/uL (Negative); Urine Nitrite No Culture Negative (Negative); Urine Protein No Culture 2+ (>=100 mg/dL) (Negative); Urine Red Blood Cell No Cult Trace(0-2/hpf) /HPF (0-Trace); Urine Specific Gravity No Cx >1.050 (1.002-1.030); Urine Urobilinogen No Cx 2+ (Negative); Urine White Blood Cell No Cult Trace(0-5/hpf) /HPF (0-Trace); Urine pH No Culture 8.5 (5.0-8.0)
[2023-09-09] MEDS: Potassium Phosphate IV 15 MMOL in NS 0.9% 250 ml 250 ML IVPB ONE (20:42)
[2023-09-10] MEDS: ZOSYN 3.375 GM Q8H per EXTENDED INFUSION IV SCH (01:01)
[2023-09-10 06:27] LABS: ABS Eosinophils 0.1 10^3/uL (0.0-0.5); ABS Lymphocytes 1.1 10^3/uL (1.0-4.8); ABS Monocytes 0.4 10^3/uL (0.0-1.1); ABS Neutrophils 4.2 10^3/uL (1.5-7.6); Eosinophil % 1.2 %; Hematocrit 23.6 % (38-53); Hemoglobin 7.9 g/dL (13.2-16.3); Lymphocyte % 19.5 %; Mean Corpuscular Hemoglobin 28.8 pg (27-33); Mean Corpuscular Hgb Conc 33.4 g/dL (31-36); Mean Corpuscular Volume 86.4 fL (80-97); Mean Platelet Volume 8.5 fL (7.5-11.2); Platelet Count 230 10^3/uL (150-450); Red Blood Count 2.73 10^6/uL (4.06-5.63); Red Cell Distribution Width 16.2 % (12-17); White Blood Count 5.9 10^3/uL (3.6-10.2)
[2023-09-10 06:48] LABS: Calcium 7.6 mg/dL (8.6-10.3); Creatinine, Serum 0.46 mg/dL (0.67-1.17); Magnesium 1.9 mg/dL (1.9-2.7); Phosphorus 3.6 mg/dL (2.5-5.0); Potassium 3.6 mmol/L (3.5-5.0); eGFR CKD-EPI 118.3 (>60)
[2023-09-10] MEDS: Dexamethasone Oral Solution 1 MG/ML 10 ML UDC (10 MG) PO SCH (08:39)
[2023-09-10 09:29] LABS: Estrone (E1) 62 pg/mL (10-60)
[2023-09-10 09:38] LABS: Albumin 2.5 g/dL (3.2-5.2); Albumin/Globulin Ratio 1.4 (1-3); Direct Bilirubin 2.1 mg/dL (0.03-0.18); Globulin 1.8 g/dL (2-4); Indirect Bilirubin 1.1 mg/dL (0.3-1.0); Total Bilirubin 3.2 mg/dL (0.2-1.0); Total Protein 4.3 g/dL (6.4-8.9)
[2023-09-10 11:51] LABS: Reverse T3 81 ng/dL (10-24)
[2023-09-10] MEDS: NS 0.9% 1000 ml BAG 1,000 ML IV SCH (15:47)
[2023-09-10] MEDS: TPN 24 HR with Dextrose 40% Water 625 ML, Amino Acid Infusion 10% 850 ML, Sterile Water... CENT\\PICC SCH (17:04)
[2023-09-10 17:30] LABS: Creatinine, Serum 0.55 mg/dL (0.67-1.17); Potassium 3.3 mmol/L (3.5-5.0); eGFR CKD-EPI 112.1 (>60)
[2023-09-10 17:33] LABS: Albumin 2.7 g/dL (3.2-5.2); Albumin/Globulin Ratio 1.4 (1-3); Magnesium 1.8 mg/dL (1.9-2.7); Phosphorus 3.2 mg/dL (2.5-5.0); Total Bilirubin 3.9 mg/dL (0.2-1.0); Total Protein 4.7 g/dL (6.4-8.9)
[2023-09-10] MEDS: Magnesium Sulfate IV 1GM/100ML 1 GM/100 ML BAG IV ONE (19:28)
[2023-09-10] MEDS: KCL 20 MEQ/100 ML IVPREMIX 20 MEQ/100 ML BAG IV SCH (20:59)
[2023-09-11 06:58] LABS: ABS Basophils 0.1 10^3/uL (0.0-0.1); ABS Eosinophils 0.1 10^3/uL (0.0-0.5); ABS Lymphocytes 1.7 10^3/uL (1.0-4.8); ABS Monocytes 0.6 10^3/uL (0.0-1.1); ABS Neutrophils 5.6 10^3/uL (1.5-7.6); ABS Nucleated RBC 0.01 10^3/ul; Eosinophil % 1.1 %; Hematocrit 24.9 % (38-53); Hemoglobin 8.5 g/dL (13.2-16.3); Lymphocyte % 21.3 %; Mean Corpuscular Hemoglobin 29.1 pg (27-33); Mean Corpuscular Hgb Conc 33.9 g/dL (31-36); Mean Corpuscular Volume 85.9 fL (80-97); Mean Platelet Volume 8.3 fL (7.5-11.2); Nucleated Red Blood Cells % 0.2 %/100WBC (0.0-0.8); Platelet Count 257 10^3/uL (150-450); Red Cell Distribution Width 16.5 % (12-17); White Blood Count 8.1 10^3/uL (3.6-10.2)
[2023-09-11 07:10] LABS: Albumin 2.6 g/dL (3.2-5.2); Albumin/Globulin Ratio 1.4 (1-3); Calcium 7.9 mg/dL (8.6-10.3); Creatinine, Serum 0.53 mg/dL (0.67-1.17); Globulin 1.9 g/dL (2-4); Magnesium 1.8 mg/dL (1.9-2.7); Phosphorus 2.8 mg/dL (2.5-5.0); Potassium 3.5 mmol/L (3.5-5.0); Total Bilirubin 4.2 mg/dL (0.2-1.0); Total Protein 4.5 g/dL (6.4-8.9); eGFR CKD-EPI 113.3 (>60)
[2023-09-11] MEDS: Magnesium Sulfate 2 gm BAG 2 GM/50 ML BAG IVPB ONE (09:43)
[2023-09-11] MEDS: TPN 24 HR with Dextrose 40% Water 625 ML, Amino Acid Infusion 10% 850 ML, Sterile Water... CENT\\PICC SCH (16:14)
[2023-09-12 07:59] LABS: Albumin 2.6 g/dL (3.2-5.2); Albumin/Globulin Ratio 1.3 (1-3); Calcium 8.3 mg/dL (8.6-10.3); Creatinine, Serum 0.55 mg/dL (0.67-1.17); Magnesium 1.9 mg/dL (1.9-2.7); Phosphorus 3.1 mg/dL (2.5-5.0); Potassium 3.3 mmol/L (3.5-5.0); Total Bilirubin 4.4 mg/dL (0.2-1.0); Total Protein 4.6 g/dL (6.4-8.9); eGFR CKD-EPI 112.1 (>60)
[2023-09-12] MEDS: KCL 20 MEQ/100 ML IVPREMIX 20 MEQ/100 ML BAG IV ONE (12:20)
[2023-09-12] MEDS: TPN 24 HR with Dextrose 70% Water 357 ML, Amino Acid Infusion 10% 850 ML, Sterile Water... TPN SCH (17:14)
[2023-09-13 06:47] LABS: INR 1.07 (0.83-1.13)
[2023-09-13 07:09] LABS: Albumin 2.5 g/dL (3.2-5.2); Albumin/Globulin Ratio 1.3 (1-3); Calcium 8.3 mg/dL (8.6-10.3); Creatinine, Serum 0.46 mg/dL (0.67-1.17); Magnesium 1.7 mg/dL (1.9-2.7); Phosphorus 2.6 mg/dL (2.5-5.0); Potassium 3.3 mmol/L (3.5-5.0); Total Bilirubin 4.6 mg/dL (0.2-1.0); Total Protein 4.5 g/dL (6.4-8.9); eGFR CKD-EPI 118.3 (>60)
[2023-09-13] MEDS: KCL 20 MEQ/100 ML IVPREMIX 20 MEQ/100 ML BAG IV SCH (08:50)
[2023-09-13 10:59] VITALS: BP 112/78
[2023-09-13] MEDS: Magnesium Sulfate 2 gm BAG 2 GM/50 ML BAG IVPB ONE (11:17)
== END 2023-09-13 15:00 | disposition home or self-care (01) | DRG 254 ==
LOC: ED 08:28 → EDHOLD 08:28 → MEDTELE 18:44 → SUATTDRO 09-04 09:05
PROVIDERS: ADMIT Hospitalist; ATTEND Internal Medicine